=== PATIENT | male | born 1970 | race Caucasian/White ===

== ENCOUNTER 2025-02-14 13:40 | Emergency (ER) | payer BC, SELFPAY ==
[2025-02-14] VITALS (8 sets, daily range): BP systolic 113–161; BP diastolic 71–105; BMI 21.4
[2025-02-14 14:04] LABS: Hematocrit 48.4 % (39.0-52.0); Hemoglobin 17.0 g/dL (13.0-18.0); Mean Corp Hgb Conc. 35.1 g/dL (33.0-37.0); Mean Corpuscular Volume 87.7 fL (80.0-94.0); Nucleated Red Blood Cells % 0 % (-); Platelet Count 216 10^3/uL (130-400); Red Cell Dist. Width 15.1 % (11.5-14.5)
[2025-02-14 14:18] LABS: ALT (SGPT) 129 U/L (0-50); AST (SGOT) 164 U/L (17-59); Albumin 5.6 g/dl (3.5-5.0); Alkaline Phosphatase 82 U/L (38-126); Blood Urea Nitrogen 16 mg/dl (9-20); Calcium 10.4 mg/dl (8.4-10.2); Carbon Dioxide 23 mmol/L (22-30); Chloride 98 mmol/L (98-107); Estimated Creatinine Clearance > 125 ml/min; Glucose 155 mg/dl (70-99); Lipase 231 U/L (23-300); Potassium 4.4 mmol/L (3.5-5.1); Sodium 139 mmol/L (135-145); Total Protein 9.6 g/dl (6.3-8.2); eGFR > 60.00
--- NOTE | 2025-02-14 14:22 | ED.GENMED ---
History of Present Illness
General
Chief Complaint: Abdominal Pain
Source: patient
Time Seen by Provider: 02/14/25 14:07
History of Present Illness
History of Present Illness:
54-year-old male presents to the emergency room complaining of abdominal pain. He rates the pain as severe particularly when he lays flat. Pain is somewhat better when he sits up but does not go away. He did have an episode of vomiting of dark
material. He denies any bloody or melanotic stool. He is moving his bowels normally. Pain began early this morning fairly suddenly. Any movement or deep breath makes the pain worse. He does not feel short of breath. He is not having actual
chest pain. Patient was admitted this past August at [facility] for what sounds like a upper GI bleed. He states his hemoglobin was 5 and he required blood transfusions. He had an endoscopy and colonoscopy but does not believe they 'found
anything'. He was prescribed omeprazole. He also takes folic acid. Patient endorses heavy alcohol use. He drinks about 12 beers a day. His last drink was about 9 to 10 PM last night.
Phy Exam
Physical Exam
Physical Exam:
General: Awake, Alert, Oriented X3. Appears uncomfortable
Vitals: Tachycardic at times
Head: Atraumatic
Eyes: Pupils equal, EOMI
Throat: Airway intact, no exudates
Neck: Trachea midline
Lungs: Clear and equal b/l
Heart: Regular rate, no murmurs
Abd: Soft, significant tenderness diffusely, maximum tenderness left upper quadrant, positive guarding, No pulsatile mass
Neuro: Nonfocal
Skin: Warm, dry, no rash
Extremities: pulses equal b/l, no edema
Course
Orders/Labs/Results
Orders:
Orders
02/14/25 13:55
Complete Blood Count/With Diff Urgent
Comprehensive Metabolic Panel Urgent
Lipase Urgent
02/14/25 14:03
EKG [Electrocardiogram (*1)] Stat
Reason for Study: Abdominal Pain
02/14/25 14:04
EKG- Treatment ONCE
02/14/25 14:19
HYDROmorphone [Dilaudid] 1 mg IV NOW STA
Pantoprazole [Protonix IV] 80 mg IV NOW STA
02/14/25 14:20
Iohexol [Omnipaque] See Protocol PO NOW STA
Lactated Ringers [Lr] 1,000 ml IV BOLUS
02/14/25 14:21
CT Abd/pel W Iv And Oral Contr Urgent
Comment:
Reason For Exam: abd pain, worse in luq
02/14/25 14:22
CR Chest - 2 Views Urgent
Comment:
Reason For Exam: upper abd pain
02/14/25 14:41
Prothrombin Time Urgent
Abnormal Lab Results
02/14/25
13:55
WBC 10.9 H 10^3/uL
(4.8-10.8)
RDW 15.1 H %
(11.5-14.5)
Absolute Neuts (auto) 9.7 H 10^3/uL
(1.4-6.5)
Absolute Lymphs (auto) 0.5 L 10^3/uL
(1.2-3.4)
Neutrophils % 88.8 H %
(42.2-75.2)
Lymphocytes % 4.9 L %
(20.5-51.1)
Creatinine 0.6 L mg/dL
(0.7-1.3)
Glucose 155 H mg/dl
(70-99)
Calcium 10.4 H mg/dl
(8.4-10.2)
Total Bilirubin 1.5 H mg/dl
(0.2-1.3)
AST 164 H U/L
(17-59)
ALT 129 H U/L
(0-50)
Total Protein 9.6 H g/dl
(6.3-8.2)
Albumin 5.6 H g/dl
(3.5-5.0)
02/14/25 13:55
02/14/25 13:55
Vital Signs
Initial and Last Documented VS:
Initial Vital Signs
Temp Pulse Resp BP Pulse Ox
97.4 F 151 20 161/105 100
02/14/25 13:48 02/14/25 13:48 02/14/25 13:48 02/14/25 13:48 02/14/25 13:48
Last Documented Vital Signs
Temp Pulse Resp BP Pulse Ox
97.4 F 103 16 123/71 97
02/14/25 13:48 02/14/25 18:00 02/14/25 18:00 02/14/25 16:30 02/14/25 17:45
MDM/Problems Addressed
Differential Diagnosis Includes:
Gastritis, gastric ulcer, duodenal ulcer, other intra-abdominal infection
MDM/Problems Addressed:
Patient presents with abdominal pain that seemed quite severe. He felt better after some IV analgesia here and some IV fluids. Workup here revealed essentially normal white blood cell count. His chemistries were remarkable for elevation in his
LFTs and bilirubin. These are consistent with his level of alcohol use. Lipase is normal. CT of the abdomen and pelvis was obtained which shows changes consistent with ileitis. There is small amount of ascites. I informed the patient about this
ascites and my concern that it could be related to liver injury and alcohol use. Patient stable for discharge home he is feeling much better at the time of discharge. I did offer to have him speak with [facility] but he declined.
*Radiology
Radiology exam reviewed: radiology read reviewed
*Pulse Oximetry
SaO2: 98
Oxygen Mode of Delivery: Room air
Patient hypoxic: no
*Critical Care Note
Total Time (30-74mins, 75-104mins- exclusive of procedures): Not Applicable
ED Attending Note
-
Portions of this chart may have been created with voice recognition software.� Occasional wrong word or��sound alike� substitutions may have occurred due to the inherent limitations of voice recognition software.
Discharge Plan
Departure
Patient Disposition: Home (Routine Discharge)
Date of Disposition: 02/14/25
Time of Disposition: 17:55
Patient with high blood pressure during this ER visit?: Yes
Condition: Good
Discharge Problem:
Enteritis, Acute abdominal pain
Instructions: Clear Liquid Diet, Abdominal Pain
Referrals:
Kate Regalado DO [Family Provider, Family Practice]
Interventions
Interventions:
*Risk Screen - Suicide Last Done: 02/14/25 13:48
*General Assessment Last Done: 02/14/25 14:07
*Neglect/Abuse Screening Last Done: 02/14/25 14:17
*ED- Fall Risk Assessment Last Done: 02/14/25 14:07
*ED COVID-19 Vaccine History Last Done: 02/14/25 14:07
*Nursing Disposition Last Done: 02/14/25 18:06
XV-Kqmoqk-Mgotkaajqv Assessment Last Done: 02/14/25 14:13
Discharge Date and Time
Discharge Date/Time: 02/14/25 18:07
Print Language: DANISH
[2025-02-14] MEDS: DILAUDID 1 MG IV (14:32)
[2025-02-14] MEDS: LR 1000 IV (14:32)
[2025-02-14] MEDS: PROTONIX IV 80 MG IV (14:33)
[2025-02-14] MEDS: OMNIPAQUE 50 ML PO (14:34)
[2025-02-14 14:59] LABS: INR 0.97; PT 13.2 Sec (11.4-14.6)
== END 2025-02-14 18:07 | disposition home or self-care (01) ==
LOC: EMR 13:40
PROVIDERS: Student in an Organized Health Care Education/Training Program; EMERGENCY PHYSICIAN Emergency Medicine; FAMILY PHYSICIAN Family Medicine
DX: K52.9 Noninfective gastroenteritis and colitis, unspecified (principal); R18.8 Other ascites
CPT/HCPCS: 96374; 96375; 96361; 99285; 71046; 74177; 80053; 83690; 85025; 85610; 93005; Q9967